=== PATIENT | female | born 1970 | race Caucasian/White ===

== ENCOUNTER → 2017-04-11 | Outpatient (CLI) | payer MEDICARE, OTHER ==
[~2017-04-11] MED LIST: ALPRAZOLAM PO; AZITHROMYCIN250 MG PO; BACTRIM DS TABL1 TA1 PO; BENTYL10 MG PO; BENZONATATE PO; CIPRO PO; CITRATE OF MAG300 ML PO; CLEOCIN HCL300 M1 PO; COLACE PO; CYMBALTA30 MG PO; DOXYCYCLINE PO; FLAGYL PO; HCTZ PO; HYDROCHLOROTHIA25 MG PO; KEFLEX500 M1 PO; KLONOPIN1 MG PO; LEVAQUIN PO; LIPITOR PO; LISINOPRIL PO; LORTAB 7.5-5001 TAB PO; METFORMIN PO; METOPROLOL TAR25 MG PO; MOTRIN600 M1 PO; MUCINEX DM1 TAB.SR . PO; PHENERGAN DM PO; PRILOSEC PO; VICODIN 5/500 T1 TAB PO; ZANTAC PO; ZANTAC150 MG PO; ZOFRAN ODT4 MG PO
--- NOTE | ~2017-04-11 | CR151 ---
[facility] A Service of [facility] & [facility] RADIOLOGY TEXT RESULTS PATIENT: DINH WIGGINS LOCATION: [facility] : 70 UNIT #: [id number] AGE: [address]: Generic Doctor NOT IN SYSTEM SEX: F ORDER DR: [id number] [facility] [address]. [place], [place] [address] [id number] O MR#: [id number] Acc #: [id number] NAME: DINH WIGGINS : 1970 SEX: F STUDY DATE/TIME: 04/11/2017 13:37 UNIT: [facility] ROOM: STUDY DESCRIPTION: CR Hip Min 2 Views Rt Attending Physician: Generic Doctor Not In System Referring Physician: Generic Doctor Not In System Ordering Physician: Physician Non-Staff Primary Care Physician: Chasidy Lake M.D. MEDICAL IMAGING REPORT This report is preliminary unless electronic signature is present EXAM Right hip, 04/11/2017 HISTORY 47-year-old female with right hip pain for 2 years. No specific injury. COMPARISON Left hip, 10/12/2015 FINDINGS Two views of the right hip demonstrate no acute fracture or dislocation. Joint spaces are adequately maintained in both hips. Bony pelvis, sacrum, and SI joints are intact. Multilevel degenerative changes noted in the visualized lumbar spine. IMPRESSION 1. No acute fracture or dislocation. 2. Multilevel degenerative changes in the visualized lower lumbar spine. Dictated by... Nehemias Barnes M.D. THIS IS AN ELECTRONICALLY VERIFIED REPORT Nehemias Barnes M.D. at 04/12/2017 3:27 PM Lora TD: 04/11/2017 22:16 JOB #: [id number] MEDICAL IMAGING REPORT Page 1 of 1 COPY
== END | disposition home or self-care (01) ==
LOC: CRAD 12:39
DX: M46.1 Sacroiliitis, not elsewhere classified (principal); M17.11 Unilateral primary osteoarthritis, right knee; M51.36 Other intervertebral disc degeneration, lumbar region
CPT/HCPCS: 73502

== ENCOUNTER → 2017-05-23 | Outpatient (CLI) | payer MEDICARE, OTHER ==
--- NOTE | ~2017-05-23 | CR170 ---
[facility] A Service of [facility] & [facility] RADIOLOGY TEXT RESULTS PATIENT: DINH WIGGINS LOCATION: [facility] : 70 UNIT #: [id number] AGE: [address]: DELISA BENNETT SEX: F ORDER DR: [id number] [facility] [address] [place], [place] [address] [id number] O MR#: [id number] Acc #: [id number] NAME: DINH WIGGINS : 1970 SEX: F STUDY DATE/TIME: 05/23/2017 13:31 UNIT: [facility] ROOM: STUDY DESCRIPTION: CR Knee 2 Views Rt Attending Physician: Delisa Bennett Referring Physician: Delisa Bennett Ordering Physician: Physician Non-Staff Primary Care Physician: Chasidy Lake M.D. MEDICAL IMAGING REPORT This report is preliminary unless electronic signature is present EXAM Right knee, 05/23/2017 HISTORY 47-year-old female with right knee pain since 2006. No specific injury. COMPARISON Right knee, 02/20/2013 FINDINGS Two views of the right knee demonstrate no acute fracture or dislocation. No joint effusion. Mild degenerative change patellofemoral joint. Moderate medial compartment joint space narrowing. Soft tissues are unremarkable. IMPRESSION 1. No acute fracture or dislocation. 2. Moderate medial compartment joint space narrowing and mild patellofemoral arthrosis. Dictated by... Nehemias Barnes M.D. THIS IS AN ELECTRONICALLY VERIFIED REPORT Nehemias Barnes M.D. at 05/24/2017 2:38 PM ROBB/sydnie TD: 05/24/2017 04:20 JOB #: [id number] MEDICAL IMAGING REPORT Page 1 of 1 COPY
--- NOTE | ~2017-05-23 | CR169 ---
[facility] A Service of [facility] & [facility] RADIOLOGY TEXT RESULTS PATIENT: DINH WIGGINS LOCATION: [facility] : 70 UNIT #: [id number] AGE: [address]: DELISA BENNETT SEX: F ORDER DR: [id number] [facility] [address] [facility]. [place], [place] [address] [id number] O MR#: [id number] Acc #: [id number] NAME: DINH WIGGINS : 1970 SEX: F STUDY DATE/TIME: 05/23/2017 13:31 UNIT: [facility] ROOM: STUDY DESCRIPTION: CR Knee 2 Views Lt Attending Physician: Delisa Bennett Referring Physician: Delisa Bennett Ordering Physician: Physician Non-Staff Primary Care Physician: Chasidy Lake M.D. MEDICAL IMAGING REPORT This report is preliminary unless electronic signature is present EXAM Left knee, 05/23/2017 HISTORY 47-year-old female with left knee pain since 2006. No specific injury. COMPARISON Left knee, 02/20/2013 FINDINGS Two views of the left knee demonstrate no acute fracture or dislocation. No joint effusion. Mild degenerative change patellofemoral joint. Falxppgc-yy-nabaiu medial compartment joint space narrowing. Soft tissues are unremarkable. IMPRESSION 1. No acute fracture or dislocation. 2. Aatmqrwi-tu-jwmpzl medial compartment joint space narrowing. Mild patellofemoral arthrosis. Dictated by... Nehemias Barnes M.D. THIS IS AN ELECTRONICALLY VERIFIED REPORT Nehemias Barnes M.D. at 05/24/2017 2:38 PM ROBB/sydnie TD: 05/24/2017 04:17 JOB #: [id number] MEDICAL IMAGING REPORT Page 1 of 1 COPY
== END | disposition home or self-care (01) ==
LOC: CRAD 12:53
DX: M25.561 Pain in right knee (principal); M17.0 Bilateral primary osteoarthritis of knee
CPT/HCPCS: 73560

== ENCOUNTER 2017-07-12 13:53 | Emergency (ER) | payer MEDICARE, OTHER ==
[~2017-07-12] VITALS: Ht 149.9 cm; Wt 99.8 kg
--- NOTE | ~2017-07-12 | CR63 ---
[facility] A Service of [facility] & [facility] RADIOLOGY TEXT RESULTS PATIENT: DINH WIGGINS LOCATION: [facility] : 70 UNIT #: [id number] AGE: [address]: Radha Yan SEX: F ORDER DR: [id number] [facility] [address] [place], [place] [address] [id number] MR#: [id number] Acc #: [id number] NAME: DINH WIGGINS : 1970 SEX: F STUDY DATE/TIME: 07/12/2017 14:46 UNIT: [facility] ROOM: STUDY DESCRIPTION: CR Chest 2 View Attending Physician: Radha Yan P.A.-C. Ordering Physician: Radha Yan P.A.-C. Primary Care Physician: Chasidy Lake M.D. MEDICAL IMAGING REPORT This report is preliminary unless electronic signature is present EXAM Chest x-ray, 07/12. INDICATIONS Cough, shortness of air, and weakness for 1 week. FINDINGS Two views of the chest are compared with 08/06/2011. Lung volumes are relatively well, but the lungs are clear. Incidental note is made of granulomatous calcifications. Cardiac and mediastinal contours are normal. No pneumothorax. IMPRESSION Low-volume inspiration, but no active disease is seen. Dictated by... Oscar Wheat Jr., M.D. THIS IS AN ELECTRONICALLY VERIFIED REPORT Oscar Wheat Jr., M.D. at 07/13/2017 8:30 AM RICARDO/hiro TD: 07/13/2017 01:28 JOB #: [id number] MEDICAL IMAGING REPORT Page 1 of 1 COPY
== END 2017-07-12 15:45 | disposition home or self-care (01) ==
LOC: CFTX 13:53 → CED 13:53 → CFTX 14:33
DX: J20.9 Acute bronchitis, unspecified (principal); I10 Essential (primary) hypertension; F32.9 Major depressive disorder, single episode, unspecified; Z88.1 Allergy status to other antibiotic agents; Z88.8 Allergy status to other drugs, medicaments and biological substances
CPT/HCPCS: 71020; 87651; 94640; 99283